=== PATIENT | female | born 1970 | race Caucasian/White ===

== ENCOUNTER → 2016-05-11 | Outpatient (CLI) | payer MEDICARE, MEDICAID ==
[~2016-05-11] MED LIST: ARMOUR THYROID15 MG PO; EFFEXOR 75M75 MG/TAB PO; MS CONTIN 660 MG/TAB PO; MULTIVITAMIN FO1 CAP PO; PRAVACHOL 40MG40 MG PO; ROXICODONE15 MG PO; XANAX2 MG PO; ZOFRAN8 MG PO
== END ==
LOC: COL.RAD 14:45
DX: M25.78 Osteophyte, vertebrae (principal); M51.26 Other intervertebral disc displacement, lumbar region; M48.06 Spinal stenosis, lumbar region

== ENCOUNTER → 2016-07-19 | Outpatient (REF) | LOC: ZLAB.WCH 10:31 | DX: Z01.89 Encounter for other specified special examinations (principal) ==

== ENCOUNTER → 2017-10-04 | Outpatient (REF) ==
[~2017-10-04] MED LIST changes: +COZAAR100 MG PO; +GLUCOPHAGE500 MG/TAB PO; +LIPITOR20 MG PO; +MEDROL 4MG DOSPA4 MG PO; +NEURONTIN600 MG/TAB PO; +VITAMIND3 5000 PO
== END ==
LOC: ZLAB.WCH 18:04
DX: Z01.89 Encounter for other specified special examinations (principal)

== ENCOUNTER → 2017-10-10 | Outpatient (REF) | LOC: ZLAB.WCH 08:29 | DX: Z01.89 Encounter for other specified special examinations (principal) ==

== ENCOUNTER 2018-05-03 20:04 | Emergency (ER) | payer MEDICARE, MEDICAID ==
[~2018-05-03] VITALS: Ht 162.6 cm; Wt 112.7 kg
[2018-05-03 20:09] VITALS: BP 146/95; TEMP 98.4
[2018-05-03] MEDS ORDERED: EFFEXOR-XR150 MG PO (20:42)
[2018-05-03] MEDS ORDERED: NEXIUM 40MG40 MG PO (20:43)
[2018-05-03] MEDS ORDERED: CHANTIX 1MG1 MG PO (20:44)
[2018-05-03] MEDS ORDERED: FLEXERIL 1010 MG/TAB PO (22:04)
[2018-05-03] MEDS ORDERED: PERCOCET 325 MG1 TA2 PO (22:04)
[2018-05-03 22:17] VITALS: PULSE 91
== END 2018-05-03 22:19 | disposition home or self-care (01) ==
LOC: COL.ER 20:04
DX: S20.219A Contusion of unspecified front wall of thorax, initial encounter (principal); M25.512 Pain in left shoulder; M25.562 Pain in left knee; E11.9 Type 2 diabetes mellitus without complications; I10 Essential (primary) hypertension; E78.5 Hyperlipidemia, unspecified; E03.9 Hypothyroidism, unspecified; F17.210 Nicotine dependence, cigarettes, uncomplicated; W18.2XXA Fall in (into) shower or empty bathtub, initial encounter; Y92.009 Unspecified place in unspecified non-institutional (private) residence as the place of occurrence of the external cause

== ENCOUNTER → 2018-07-06 | Outpatient (CLI) | payer MEDICARE, MEDICAID ==
[~2018-07-06] MED LIST changes: +CHANTIX 1MG1 MG PO; +EFFEXOR-XR150 MG PO; +FLEXERIL 1010 MG/TAB PO; +NEXIUM 40MG40 MG PO; +PERCOCET 325 MG1 TA2 PO
== END ==
LOC: COL.LAB 10:24
DX: Z01.812 Encounter for preprocedural laboratory examination (principal)

== ENCOUNTER → 2018-07-25 | Outpatient (CLI) | payer MEDICARE, MEDICAID | LOC: COL.VAS 09:55 | DX: M79.89 Other specified soft tissue disorders (principal); Z96.652 Presence of left artificial knee joint ==

== ENCOUNTER 2019-03-31 12:23 | Emergency (ER) | payer MEDICARE, MEDICAID ==
[~2019-03-31] VITALS: Ht 162.6 cm; Wt 100.0 kg
[2019-03-31 12:31] VITALS: BP 191/11; TEMP 98
[2019-03-31] MEDS ORDERED: DAZIDOX10 MG PO (12:35)
[2019-03-31 13:47] VITALS: PULSE 100
== END 2019-03-31 13:47 | disposition home or self-care (01) ==
LOC: COL.ER 12:23
DX: M25.562 Pain in left knee (principal); G89.29 Other chronic pain; F32.9 Major depressive disorder, single episode, unspecified; F41.9 Anxiety disorder, unspecified; F17.210 Nicotine dependence, cigarettes, uncomplicated; Z98.890 Other specified postprocedural states
CPT/HCPCS: J1885; L1846

== ENCOUNTER 2023-11-13 00:06 | Emergency (ER) | payer MEDICARE, MEDICAID ==
[~2023-11-13] VITALS: Ht 162.6 cm; Wt 86.4 kg
[~2023-11-13 00:06] MED LIST changes: +DAZIDOX10 MG PO
[2023-11-13] MEDS ORDERED: NAPROSYN500 MG PO (01:47)
[2023-11-13 01:53] VITALS: BP 135/76; PULSE 66; TEMP 98.2
== END 2023-11-13 01:53 | disposition home or self-care (01) ==
LOC: COL.ER 00:06
DX: S20.222A Contusion of left back wall of thorax, initial encounter (principal); Y04.8XXA Assault by other bodily force, initial encounter